=== PATIENT | male | born 1960 | race Caucasian/White ===

== ENCOUNTER 2017-06-30 11:06 | Day surgery (SDC) | payer BC ==
[~2017-06-30] VITALS: Ht 191.8 cm; Wt 119.1 kg
[~2017-06-30 11:06] MED LIST: ALLO100T30 PO; AMIT50TA PO; ASPI325T17 PO; ATOR20TA9 PO; FENO54TA17 PO; FENTANYL PF 250 MCG/5ML ONE; FURO20TA3 PO; GABA300C10 PO; GLIM4TAB2 PO; INSU100V13 SQ; LIRA0.6P2 SQ; LISI40TA PO; LOSA25TA5 PO; METF10002 PO; METO-93 PO; MIDAZOLAM 1 MG/ML, 2ML ONE; NAPR250T6 PO
[2017-06-30] MEDS ORDERED: LACTATED RINGERS 1,000 ML IV SCH (11:39)
[2017-06-30] MEDS ORDERED: AMLO5TAB2 PO (11:46)
[2017-06-30] MEDS ORDERED: MULT-205 PO (11:46)
[2017-06-30] MEDS ORDERED: DIPH25TA2 PO (11:46)
[2017-06-30] MEDS ORDERED: CARV12.52 PO (11:46)
[2017-06-30] MEDS ORDERED: IRON1TAB62 PO (11:46)
[2017-06-30] MEDS ORDERED: LIDOCAINE-MPF 1%, 2ML INFIL ONE (12:00)
[2017-06-30 12:01] VITALS: BP 165/98
[2017-06-30 12:22] LABS: ALANINE AMINOTRANSFERASE 65 U/L (12-78); ALBUMIN 4.3 g/dL (3.4-5.0); ANION GAP 8 mmol/L (5-15); CALCIUM 9.1 mg/dL (8.5-10.1); CHLORIDE 105 mmol/L (98-107); CREATININE 1.38 mg/dL (0.7-1.3)
[2017-06-30 12:25] LABS: ALKALINE PHOSPHATASE 65 U/L (45-117); BILIRUBIN,TOTAL 0.7 mg/dL (0.2-1.0); TOTAL PROTEIN 7.9 g/dL (6.4-8.2)
[2017-06-30] MEDS ORDERED: BUPIVACAINE/PF 0.5% ONE (12:34)
[2017-06-30] MEDS ORDERED: EPINEPHRINE 1 MG/ML, 1ML ONE (12:34)
[2017-06-30] MEDS ORDERED: PROPOFOL 10 MG/ML, 20ML ONE (12:48)
[2017-06-30] MEDS ORDERED: PHENYLEPHRINE 10 MG/ML ONE (12:48)
[2017-06-30] MEDS ORDERED: ROCURONIUM 10 MG/ML,10ML ONE (12:48)
[2017-06-30] MEDS ORDERED: SUCCINYLCHOLINE 20 MG/ML, 10ML ONE (12:48)
[2017-06-30] MEDS ORDERED: CEFAZOLIN 1,000 MG ONE (12:48)
[2017-06-30] MEDS ORDERED: BUPIVACAINE/PF-EPI 0.5% 1:200K INFIL ONE (13:08)
[2017-06-30] MEDS ORDERED: GLYCOPYRROLATE 0.2MG/1ML, 5ML ONE (13:38)
[2017-06-30] MEDS ORDERED: NEOSTIGMINE 1 MG/ML, 10ML ONE (13:38)
[2017-06-30] MEDS ORDERED: HYDROcodone/APAP 7.5-325MG/15ML UDC PO PRN (14:00)
[2017-06-30] MEDS ORDERED: ONDANSETRON ODT 8 MG PO PRN (14:00)
[2017-06-30] MEDS ORDERED: LABETALOL 5MG/ML, 20ML IV PRN (14:00)
[2017-06-30] MEDS ORDERED: ACETAMINOPHEN 325 MG TABLET PO PRN (14:00)
[2017-06-30] MEDS ORDERED: MORPHINE SULFATE 4 MG/ML, 1ML IVPush PRN (14:00)
[2017-06-30] MEDS ORDERED: hydrALAzine 20 MG/ML, 1ML IV PRN (14:00)
[2017-06-30] MEDS ORDERED: OXYcodone 5 MG/5 ML ORAL.SOL UDC PO PRN (14:00)
[2017-06-30] MEDS ORDERED: OXYcodone 5 MG/5 ML ORAL.SOL UDC ONE (14:04)
[2017-06-30] MEDS ORDERED: FENTANYL PF 100 MCG/2ML ONE (14:04)
[2017-06-30] MEDS ORDERED: ACETAMINOPHEN 650 MG/20.3 ML UDC ONE (14:04)
[2017-06-30] MEDS: FENTANYL PF 100 MCG/2ML IV PRN ×2 (14:30→14:37)
== END 2017-06-30 16:35 ==
LOC: OUT 11:06
PROVIDERS: ATTEND Surgery
DX: K40.91 Unilateral inguinal hernia, without obstruction or gangrene, recurrent (principal); I10 Essential (primary) hypertension; E11.9 Type 2 diabetes mellitus without complications; Z79.4 Long term (current) use of insulin
CPT/HCPCS: 49520; 80053; 82962; 93005; C1781; J0171; J0330; J0690; J2250; J2370; J2704; J2710; J3010; J3490; J7120